=== PATIENT | female | born 1980 | race Caucasian/White ===

== ENCOUNTER 2017-11-10 23:27 | Inpatient (IN) | payer MEDICAID, OTHER ==
[~2017-11-10] VITALS: Ht 165.1 cm; Wt 63.0 kg
[~2017-11-10 23:27] MED LIST: DEPO150I IM; LEXA20TA PO; LORA1TAB PO; REQU0.25 PO; SERO300T PO; TOPA200T4 PO
[2017-11-11 00:34] VITALS: BP 137/74; PULSE 75; RESP 16; TEMP 98.3; O2SAT 98
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
[2017-11-11] MEDS ORDERED: LORA1TAB12 PO (00:44)
[2017-11-11] MEDS ORDERED: LEXA10TA PO (00:44)
[2017-11-11] MEDS ORDERED: DEPO150I IM (00:44)
[2017-11-11 01:07] LABS: AUTOMATED NEUTROPHIL # 8.9 TH/MM3 (1.8-7.7); BASOPHIL # 0.1 TH/MM3 (0-0.2); BASOPHIL % 0.5 % (0.0-2.0); EOSINOPHIL # 0.2 TH/MM3 (0-0.4); EOSINOPHIL % 1.1 % (0.0-4.0); HEMATOCRIT 38.8 % (35.0-46.0); HEMOGLOBIN 13.4 GM/DL (11.6-15.3); LYMPH % 29.8 % (9.0-44.0); LYMPHOCYTE # 4.3 TH/MM3 (1.0-4.8); MEAN CELL VOLUME 96.7 FL (80.0-100.0); MEAN CORPUSCULAR HEMOGLOBIN 33.4 PG (27.0-34.0); MEAN CORPUSCULAR HGB CONC 34.5 % (32.0-36.0); MEAN PLATELET VOLUME 9.3 FL (7.0-11.0); MONO % 7.1 % (0.0-8.0); NEUT % 61.5 % (16.0-70.0); PLATELET COUNT 279 TH/MM3 (150-450); RED BLOOD COUNT 4.01 MIL/MM3 (4.00-5.30); WHITE BLOOD COUNT 14.5 TH/MM3 (4.0-11.0)
[2017-11-11 01:30] LABS: BICARBONATE 22.1 MEQ/L (21.0-32.0); CALCIUM 8.6 MG/DL (8.5-10.1); CREATININE 0.74 MG/DL (0.50-1.00)
[2017-11-11 06:33] VITALS: BP 127/72; PULSE 80; RESP 18; O2SAT 97
[2017-11-11] MEDS ORDERED: NICOTINE 21 MG/24 HR PATCH T-DERMAL ONE (08:45)
[2017-11-11] MEDS ORDERED: OLANZapine IM 10 MG VIAL IM ONE (10:00)
[2017-11-11] MEDS ORDERED: diphenhydrAMINE HCL 50 MG/ML VIAL IM ONE ×2 (10:00→18:30)
[2017-11-11 11:00] VITALS: BP 114/64; PULSE 87; RESP 20; O2SAT 98
[2017-11-11 18:09] VITALS: BP 130/90; PULSE 85; RESP 18; TEMP 98.7; O2SAT 99
[2017-11-11] MEDS ORDERED: ZIPRASIDONE MESYLATE 20 MG VIAL IM ONE (18:30)
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
[2017-11-11] MEDS ORDERED: MAGNESIUM HYDROXIDE SUSP 30 ML CUP PO PRN (20:45)
[2017-11-11] MEDS ORDERED: ALUMINUM/MAGNESIUM/SIMETH 30 ML CUP PO PRN (20:45)
[2017-11-11] MEDS ORDERED: ACETAMINOPHEN 325 MG TAB PO PRN (20:45)
[2017-11-11 23:30] VITALS: BP 118/68; PULSE 99; RESP 16; TEMP 99.7; O2SAT 99
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
[2017-11-12] MEDS: ESCITALOPRAM OXALATE 10 MG TAB PO SCH (11:30)
[2017-11-12] MEDS: PALIPERIDONE ER 6 MG TAB PO SCH (11:30)
[2017-11-12] MEDS: clonazePAM 0.5 MG TAB PO SCH ×2 (12:59→21:55)
[2017-11-12 17:44] VITALS: BP 139/82; PULSE 92; RESP 18; TEMP 97.8; O2SAT 99
[2017-11-13 06:10] VITALS: BP 100/55; PULSE 81; RESP 17; TEMP 97.6; O2SAT 100
[2017-11-13] MEDS: clonazePAM 0.5 MG TAB PO SCH ×3 (06:23→20:25)
[2017-11-13] MEDS: PALIPERIDONE ER 6 MG TAB PO SCH (09:38)
[2017-11-13] MEDS: ESCITALOPRAM OXALATE 10 MG TAB PO SCH (09:39)
[2017-11-13 11:57] LABS: HEMOGLOBIN A1C 5.2 % (4.3-6.0)
[2017-11-13 12:10] LABS: BICARBONATE 23.7 MEQ/L (21.0-32.0); BLOOD UREA NITROGEN 15 MG/DL (7-18); CALCIUM 9.1 MG/DL (8.5-10.1); CHLORIDE 107 MEQ/L (98-107); CHOLESTEROL 146 MG/DL (120-200); CREATININE 0.79 MG/DL (0.50-1.00); GLOMERULAR FILTRATION RATE 82 ML/MIN (>89); GLUCOSE,RANDOM 93 MG/DL (74-106); SODIUM (NA) 138 MEQ/L (136-145); TRIGLYCERIDES 209 MG/DL (42-150)
[2017-11-13 12:18] LABS: HDL CHOLESTEROL 53.9 MG/DL (40.0-60.0); LDL CHOLESTEROL 50 MG/DL (0-99)
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
--- NOTE | 2017-11-13 15:44 | EKG ---
Date Performed: 11/12/2017 Time Performed: 11:38:23 PTAGE: 37 years EKG: Sinus rhythm NORMAL ECG NO PREVIOUS TRACING DOCTOR: Daniel Bourgeois Interpretating Date/Time 11/13/2017 15:43:17
--- NOTE | 2017-11-13 16:48 | HHI.PYPN ---
Subjective Chief Complaint: recent aggressive behavior, noncompliant with medications Remarks Patient seen for follow-up, chart reviewed. Nursing staff reported the patient has been noted to be guarded, slept well denies any auditory or visual hallucinations. Patient was found per dissipating group earlier was calm and cooperative interview today. Patient states that she has been feeling "good" reports feeling "fine with the meds". Patient states that she is wanting to be discharged soon as she has interviews for jobs coming up this week. Patient has not had any behavioral dyscontrol since admission and has a compliant with treatment. She denies any perceptual disturbances at this time noted to be more organized and future oriented. Review of Systems Except as stated in HPI: all other systems reviewed are Neg Mental Status Examination Appearance: Appropriate Consciousness: Alert Orientation: x4 Motor Activity: Normal gait Speech: Pressured (less so today) Language: Adequate Fund of Knowledge: Poor (able to assess) Attention and Concentration: Adequate Memory: Unremarkable Mood: Appropriate Affect: Appropriate Thought Process & Associations: Goal directed, Loose associations Thought Content: Appropriate Hallucination Type: None Delusion Type: None, Other Suicidal Ideation: No Suicidal Plan: No Suicidal Intention: No Homicidal Ideation: No Homicidal Plan: No Homicidal Intention: No Insight: Poor Judgment: Poor Results Labs Labs reviewed Test 11/13/17 11:03 Blood Urea Nitrogen 15 MG/DL Creatinine 0.79 MG/DL Random Glucose 93 MG/DL Calcium Level 9.1 MG/DL Sodium Level 138 MEQ/L Potassium Level 4.2 MEQ/L Chloride Level 107 MEQ/L Carbon Dioxide Level 23.7 MEQ/L Anion Gap 7 MEQ/L Estimat Glomerular Filtration Rate 82 ML/MIN Hemoglobin A1c 5.2 % Triglycerides Level 209 MG/DL Cholesterol Level 146 MG/DL LDL Cholesterol 50 MG/DL HDL Cholesterol 53.9 MG/DL Cholesterol/HDL Ratio 2.70 RATIO Thyroid Stimulating Hormone 3rd Gen 1.150 uIU/ML Vitals/IOs Vital Signs Date Time Temp Pulse Resp B/P (MAP) Pulse Ox O2 Delivery O2 Flow Rate FiO2 11/13/17 06:10 97.6 81 17 100/55 (70) 100 11/11/17 18:09 Room Air Assessment & Plan Problem List: (1) Schizoaffective disorder, bipolar type ICD Codes: F25.0 - Schizoaffective disorder, bipolar type Assessment & Plan She at this time noted to be more behavioral control has not had any episodes of agitation nor irritability. Patient tolerating medications well and compliant with treatment. Patient noted with less pressured speech, future oriented. Due to current treatment for now. Collateral pending from mother ( Lizbeth Varma [phone]) prior to discharge. Discharge planning in progress Justification for Cont. Inpt. At risk for further decompensation if at lower level of care Discharge Planning To discharged back to her mother's residence Request HC Surrog/Guard Advoc?: Yes Aryan Faye MD Nov 13, 2017 16:48
[2017-11-13] MEDS: NICOTINE 14 MG/24 HR PATCH T-DERMAL SCH (17:41)
[2017-11-13 18:00] VITALS: BP 135/61; PULSE 148; RESP 17; TEMP 98.9; O2SAT 100
[2017-11-14 05:21] VITALS: BP 99/56; PULSE 85; RESP 18; TEMP 97.8; O2SAT 100
[2017-11-14] MEDS: clonazePAM 0.5 MG TAB PO SCH (05:46)
[2017-11-14] MEDS: NICOTINE 14 MG/24 HR PATCH T-DERMAL SCH (08:36)
[2017-11-14] MEDS: ESCITALOPRAM OXALATE 10 MG TAB PO SCH (08:36)
[2017-11-14] MEDS: PALIPERIDONE ER 6 MG TAB PO SCH (08:36)
[2017-11-14] MEDS ORDERED: REMOVE OLD PATCH T-DERMAL SCH (09:00)
[2017-11-14] MEDS ORDERED: INVE6TAB3 PO (10:43)
[2017-11-14] MEDS ORDERED: LEXA10TA PO (10:43)
[2017-11-14] MEDS ORDERED: CLON.5 PO (10:43)
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
== END 2017-11-14 12:15 | disposition home or self-care (01) | DRG 885 ==
LOC: NEDAMB 23:27 → NEDA 11-11 20:34 → H270 11-11 23:30
PROVIDERS: ADMIT Student in an Organized Health Care Education/Training Program; ATTEND Student in an Organized Health Care Education/Training Program
DX: F25.0 Schizoaffective disorder, bipolar type (principal); Z91.14 Patient's other noncompliance with medication regimen; F17.210 Nicotine dependence, cigarettes, uncomplicated
CPT/HCPCS: 80048; 80061; 80307; 83036; 84443; 85025; 93005; 96372; J1200; J3486